=== PATIENT | female | born 1950 | race Caucasian/White ===

== ENCOUNTER 2018-01-10 14:26 | Inpatient (IN) | payer MEDICARE ==
[2018-01-10] MEDS: morphine 2 MG INJ IV ×2 (15:12→15:45)
[2018-01-10] MEDS: ONDANSETRON 4 MG INJ IV ×2 (15:12→19:21)
[2018-01-10] MEDS: HYDROmorphONE 0.5 MG/0.5 ML SYG IV ×2 (16:53→18:52)
[2018-01-10 17:09] LABS: ADD MAN DIFF? NO
[2018-01-10 17:14] LABS: WHITE BLOOD COUNT 12.1 10^3/ul (4.8-10.8)
[2018-01-10 17:14] LABS: BASOPHILS % 0.3 % (0.0-2.0); EOSINOPHILS % 0.1 % (0.0-7.0); HEMOGLOBIN 11.9 g/dl (12.0-16.0); LYMPHOCYTES # 0.7 10^3/ul (0.8-2.9); LYMPHOCYTES % 5.8 % (15.0-51.0); MEAN CORPUSCULAR HEMOGLOBIN 29.5 pg (29.0-33.0); MEAN CORPUSCULAR HGB CONC 33.1 g/dl (32.0-37.0); MEAN CORPUSCULAR VOLUME 89.1 fl (82.0-101.0); MEAN PLATELET VOLUME 8.1 fl (7.4-10.4); MONOCYTE # 0.4 10^3/ul (0.3-0.9); MONOCYTES % 2.9 % (0.0-11.0); NEUTROPHIL # 10.9 10^3/ul (1.6-7.5); NEUTROPHILS % 90.4 % (39.0-77.0); PLATELET COUNT 241 10^3/UL (140-415); RED BLOOD COUNT 4.04 10^6/ul (4.20-5.40); RED CELL DISTRIBUTION WIDTH 13.4 % (11.5-14.5)
[2018-01-10 17:33] LABS: ANION GAP 8 (5-13); BLOOD UREA NITROGEN 18 mg/dl (7-20); CALCIUM 8.3 mg/dl (8.4-10.2); CARBON DIOXIDE 24 mmol/L (21-31); CHLORIDE 104 mmol/L (97-110); CREATININE 0.68 mg/dl (0.44-1.00); Estimated GFR > 60 mL/min (>60); GLUCOSE 102 mg/dl (70-220); POTASSIUM 3.6 mmol/L (3.5-5.1); SODIUM 136 mmol/L (135-144)
[2018-01-10 18:09] LABS: INR 0.98; PROTIME 13.1 Sec (11.9-14.9)
[2018-01-10 18:10] LABS: PARTIAL THROMBOPLASTIN TIME 26.9 Sec (23.0-35.0)
[2018-01-10] MEDS: PANTOPRAZOLE 40 MG INJ IV (18:47)
[2018-01-10] MEDS ORDERED: ALBUTEROL/IPRATROPIUM (NEB) 3 ML AMP HHN (19:00)
[2018-01-10] MEDS ORDERED: NA PHOSPHATE/BIPHOS 133 ML ENEMA PR (19:00)
[2018-01-10] MEDS ORDERED: hydrALAzine 20 MG INJ IV (19:00)
[2018-01-10] MEDS ORDERED: LORAZEPAM 2 MG INJ IV (19:00)
[2018-01-10] MEDS ORDERED: DOCUSATE SODIUM 100 MG CAP PO (19:00)
[2018-01-10] MEDS ORDERED: NACL 0.9% 3 ML SYG IV (19:00)
[2018-01-10] MEDS ORDERED: MAGNESIUM HYDROXIDE 30ML CUP PO (19:00)
[2018-01-10] MEDS ORDERED: NITROGLYCERIN (SL) 0.4 MG TAB SL (19:00)
[2018-01-10] MEDS: FAMOTIDINE 20 MG TAB PO (20:09)
[2018-01-10 20:32] LABS: TROPONIN-I < 0.012 ng/ml (0.000-0.120)
[2018-01-10] MEDS: HEPARIN SODIUM 5,000 UNIT/ML VIAL SC (20:47)
[2018-01-10 21:02] LABS: FREE T4 (FREE THYROXINE) 0.98 ng/dl (0.78-2.44)
[2018-01-10] MEDS: ACETAMINOPHEN 325 MG TAB PO (21:36)
[2018-01-10] MEDS: HYDROCODONE/APAP (5/325) TAB PO (21:36)
[2018-01-10] MEDS: SOD CHLORIDE 0.45% 1,000 ML IV (23:55)
[2018-01-11] MEDS: morphine 2 MG INJ IV ×3 (00:56→08:54)
[2018-01-11] MEDS: HYDROmorphONE 0.5 MG/0.5 ML SYG IV ×4 (02:25→15:37)
[2018-01-11] MEDS: ONDANSETRON 4 MG INJ IV ×2 (04:00→10:25)
[2018-01-11 05:04] LABS: ADD MAN DIFF? NO
[2018-01-11 05:05] LABS: BASOPHILS % 0.4 % (0.0-2.0); EOSINOPHILS # 0.1 10^3/ul (0.0-0.5); EOSINOPHILS % 1.6 % (0.0-7.0); HEMATOCRIT 31.2 % (37.0-47.0); HEMOGLOBIN 10.3 g/dl (12.0-16.0); LYMPHOCYTES # 0.9 10^3/ul (0.8-2.9); LYMPHOCYTES % 13.1 % (15.0-51.0); MEAN CORPUSCULAR HEMOGLOBIN 29.5 pg (29.0-33.0); MEAN CORPUSCULAR VOLUME 89.4 fl (82.0-101.0); MEAN PLATELET VOLUME 8.4 fl (7.4-10.4); MONOCYTE # 0.3 10^3/ul (0.3-0.9); MONOCYTES % 3.6 % (0.0-11.0); NEUTROPHIL # 5.7 10^3/ul (1.6-7.5); NEUTROPHILS % 80.7 % (39.0-77.0); PLATELET COUNT 211 10^3/UL (140-415); RED BLOOD COUNT 3.49 10^6/ul (4.20-5.40); RED CELL DISTRIBUTION WIDTH 13.7 % (11.5-14.5)
[2018-01-11 05:22] LABS: ANION GAP 11 (5-13); BLOOD UREA NITROGEN 12 mg/dl (7-20); CARBON DIOXIDE 23 mmol/L (21-31); CHLORIDE 100 mmol/L (97-110); CREATININE 0.49 mg/dl (0.44-1.00); Estimated GFR > 60 mL/min (>60); GLUCOSE 91 mg/dl (70-220); MAGNESIUM 1.9 mg/dl (1.7-2.5); PHOSPHORUS 3.3 mg/dl (2.5-4.9); POTASSIUM 3.4 mmol/L (3.5-5.1); SODIUM 134 mmol/L (135-144)
[2018-01-11 05:23] LABS: CHOL/HDL RATIO 2.6 RATIO; HDL CHOLESTEROL 54 mg/dl (33-92); LDL CHOLESTEROL,CALCULATED 79 mg/dl; TRIGLYCERIDES 51 mg/dl (0-149)
[2018-01-11 05:23] LABS: CHOLESTEROL 143 mg/dl (100-200)
[2018-01-11 05:24] LABS: HEMOGLOBIN A1C 5.1 % (0-5.9)
[2018-01-11] MEDS: PANTOPRAZOLE 40 MG INJ IV (05:59)
[2018-01-11 06:34] LABS: ADD UMIC YES; UR ASCORBIC ACID NEGATIVE (NEGATIVE); UR BILIRUBIN (Dip) NEGATIVE (NEGATIVE); UR BLOOD (Dip) NEGATIVE (NEGATIVE); UR CLARITY SLIGHTLY CLOUDY (CLEAR); UR COLOR YELLOW (YELLOW); UR GLUCOSE (Dip) NEGATIVE (NEGATIVE); UR KETONES (Dip) TRACE mg/dL (NEGATIVE); UR LEUKOCYTE ESTERASE (Dip) TRACE Leu/ul (NEGATIVE); UR NITRITE (Dip) NEGATIVE (NEGATIVE); UR RBC 1 /HPF (0-5); UR SPECIFIC GRAVITY (Dip) 1.014 (1.003-1.030); UR TOTAL PROTEIN (Dip) NEGATIVE (NEGATIVE); UR UROBILINOGEN (Dip) NEGATIVE (NEGATIVE); UR WBC 4 /HPF (0-5)
[2018-01-11] MEDS: SOD CHLORIDE 0.45% 1,000 ML IV ×3 (08:08→21:28)
[2018-01-11] MEDS: HEPARIN SODIUM 5,000 UNIT/ML VIAL SC ×3 (08:27→20:48)
[2018-01-11] MEDS ORDERED: HEPARIN 5,000 UNIT/0.5 ML VIAL ×2 (10:13→20:43)
[2018-01-11] MEDS: POTASSIUM CHLORIDE (SR) 20 MEQ TAB PO (10:40)
[2018-01-11] MEDS ORDERED: ONDANSETRON 4 MG INJ IV (12:00)
[2018-01-11] MEDS: CEFTRIAXONE 1 GM/50 ML (PMX) 50 ML IVPB (12:47)
[2018-01-11] MEDS: traMADol 50 MG TAB PO ×2 (12:48→22:59)
[2018-01-11] MEDS: ONDANSETRON INJ 8 MG in SOD CHLORIDE 0.9% 50 ML IV (16:53)
[2018-01-11] MEDS ORDERED: morphine LIQ (10 MG/5 ML) CUP PO (22:30)
[2018-01-12 05:03] LABS: ADD MAN DIFF? NO
[2018-01-12 05:05] LABS: BASOPHIL # 0.1 10^3/ul (0.0-0.1); BASOPHILS % 1.1 % (0.0-2.0); EOSINOPHILS # 0.3 10^3/ul (0.0-0.5); HEMATOCRIT 32.2 % (37.0-47.0); HEMOGLOBIN 10.4 g/dl (12.0-16.0); LYMPHOCYTES # 1.2 10^3/ul (0.8-2.9); LYMPHOCYTES % 15.8 % (15.0-51.0); MEAN CORPUSCULAR HEMOGLOBIN 29.5 pg (29.0-33.0); MEAN CORPUSCULAR HGB CONC 32.3 g/dl (32.0-37.0); MEAN CORPUSCULAR VOLUME 91.2 fl (82.0-101.0); MEAN PLATELET VOLUME 8.4 fl (7.4-10.4); MONOCYTE # 0.5 10^3/ul (0.3-0.9); MONOCYTES % 6.7 % (0.0-11.0); NEUTROPHIL # 5.4 10^3/ul (1.6-7.5); PLATELET COUNT 206 10^3/UL (140-415); RED BLOOD COUNT 3.53 10^6/ul (4.20-5.40); RED CELL DISTRIBUTION WIDTH 13.7 % (11.5-14.5)
[2018-01-12 05:05] LABS: WHITE BLOOD COUNT 7.5 10^3/ul (4.8-10.8)
[2018-01-12 05:35] LABS: ANION GAP 5 (5-13); BLOOD UREA NITROGEN 9 mg/dl (7-20); CARBON DIOXIDE 25 mmol/L (21-31); CHLORIDE 103 mmol/L (97-110); CREATININE 0.48 mg/dl (0.44-1.00); Estimated GFR > 60 mL/min (>60); GLUCOSE 97 mg/dl (70-220); SODIUM 133 mmol/L (135-144)
[2018-01-12] MEDS: PANTOPRAZOLE 40 MG INJ IV (05:59)
[2018-01-12] MEDS: traMADol 50 MG TAB PO ×3 (07:30→20:39)
[2018-01-12] MEDS ORDERED: HEPARIN 5,000 UNIT/0.5 ML VIAL ×2 (08:23→20:10)
[2018-01-12] MEDS: HEPARIN SODIUM 5,000 UNIT/ML VIAL SC ×2 (09:42→20:42)
[2018-01-12] MEDS: ACETAMINOPHEN 325 MG TAB PO ×2 (11:39→17:09)
[2018-01-12] MEDS: CEFTRIAXONE 1 GM/50 ML (PMX) 50 ML IVPB (12:35)
[2018-01-13] MEDS: traMADol 50 MG TAB PO ×3 (04:32→20:23)
[2018-01-13 05:14] LABS: ADD MAN DIFF? NO
[2018-01-13 05:21] LABS: BASOPHILS % 0.6 % (0.0-2.0); EOSINOPHILS % 3.1 % (0.0-7.0); HEMATOCRIT 31.4 % (37.0-47.0); HEMOGLOBIN 10.2 g/dl (12.0-16.0); LYMPHOCYTES # 0.9 10^3/ul (0.8-2.9); LYMPHOCYTES % 13.4 % (15.0-51.0); MEAN CORPUSCULAR HEMOGLOBIN 29.4 pg (29.0-33.0); MEAN CORPUSCULAR HGB CONC 32.5 g/dl (32.0-37.0); MEAN CORPUSCULAR VOLUME 90.5 fl (82.0-101.0); MEAN PLATELET VOLUME 8.5 fl (7.4-10.4); MONOCYTES % 7.9 % (0.0-11.0); NEUTROPHIL # 4.7 10^3/ul (1.6-7.5); NEUTROPHILS % 74.4 % (39.0-77.0); PLATELET COUNT 197 10^3/UL (140-415); RED BLOOD COUNT 3.47 10^6/ul (4.20-5.40); RED CELL DISTRIBUTION WIDTH 13.7 % (11.5-14.5)
[2018-01-13 05:21] LABS: WHITE BLOOD COUNT 6.4 10^3/ul (4.8-10.8)
[2018-01-13 05:22] LABS: EOSINOPHILS # 0.2 10^3/ul (0.0-0.5); MONOCYTE # 0.5 10^3/ul (0.3-0.9)
[2018-01-13] MEDS: PANTOPRAZOLE 40 MG INJ IV (05:23)
[2018-01-13 05:49] LABS: ANION GAP 9 (5-13); BLOOD UREA NITROGEN 9 mg/dl (7-20); CALCIUM 8.3 mg/dl (8.4-10.2); CARBON DIOXIDE 27 mmol/L (21-31); CHLORIDE 99 mmol/L (97-110); CREATININE 0.48 mg/dl (0.44-1.00); Estimated GFR > 60 mL/min (>60); GLUCOSE 89 mg/dl (70-220); POTASSIUM 3.9 mmol/L (3.5-5.1); SODIUM 135 mmol/L (135-144)
[2018-01-13] MEDS ORDERED: HEPARIN 5,000 UNIT/0.5 ML VIAL ×2 (08:12→20:21)
[2018-01-13] MEDS: HEPARIN SODIUM 5,000 UNIT/ML VIAL SC ×2 (09:15→20:32)
[2018-01-13] MEDS: CEFTRIAXONE 1 GM/50 ML (PMX) 50 ML IVPB (12:12)
[2018-01-13] MEDS: ACETAMINOPHEN 325 MG TAB PO ×2 (12:13→18:10)
[2018-01-13] MEDS: CALCIUM CARBONATE 500 MG CHEW TAB PO (13:20)
[2018-01-14] MEDS: traMADol 50 MG TAB PO ×4 (02:55→20:15)
[2018-01-14 05:20] LABS: ADD MAN DIFF? NO
[2018-01-14 05:21] LABS: BASOPHIL # 0.1 10^3/ul (0.0-0.1); BASOPHILS % 0.7 % (0.0-2.0); EOSINOPHILS # 0.2 10^3/ul (0.0-0.5); EOSINOPHILS % 3.3 % (0.0-7.0); HEMATOCRIT 30.6 % (37.0-47.0); HEMOGLOBIN 9.9 g/dl (12.0-16.0); LYMPHOCYTES % 14.1 % (15.0-51.0); MEAN CORPUSCULAR HEMOGLOBIN 29.2 pg (29.0-33.0); MEAN CORPUSCULAR HGB CONC 32.4 g/dl (32.0-37.0); MEAN CORPUSCULAR VOLUME 90.3 fl (82.0-101.0); MEAN PLATELET VOLUME 8.7 fl (7.4-10.4); MONOCYTE # 0.6 10^3/ul (0.3-0.9); MONOCYTES % 8.1 % (0.0-11.0); NEUTROPHIL # 5.3 10^3/ul (1.6-7.5); NEUTROPHILS % 72.7 % (39.0-77.0); PLATELET COUNT 225 10^3/UL (140-415); RED BLOOD COUNT 3.39 10^6/ul (4.20-5.40); RED CELL DISTRIBUTION WIDTH 13.9 % (11.5-14.5)
[2018-01-14 05:21] LABS: WHITE BLOOD COUNT 7.3 10^3/ul (4.8-10.8)
[2018-01-14 05:47] LABS: ANION GAP 6 (5-13); BLOOD UREA NITROGEN 10 mg/dl (7-20); CALCIUM 8.2 mg/dl (8.4-10.2); CARBON DIOXIDE 29 mmol/L (21-31); CHLORIDE 100 mmol/L (97-110); CREATININE 0.43 mg/dl (0.44-1.00); Estimated GFR > 60 mL/min (>60); GLUCOSE 94 mg/dl (70-220); POTASSIUM 3.9 mmol/L (3.5-5.1); SODIUM 135 mmol/L (135-144)
[2018-01-14] MEDS: PANTOPRAZOLE 40 MG INJ IV (06:31)
[2018-01-14] MEDS ORDERED: HEPARIN 5,000 UNIT/0.5 ML VIAL ×2 (08:41→20:02)
[2018-01-14] MEDS: HEPARIN SODIUM 5,000 UNIT/ML VIAL SC ×2 (08:46→20:08)
[2018-01-14] MEDS: ACETAMINOPHEN 325 MG TAB PO (08:54)
== END 2018-01-14 20:48 | DRG 563 ==
LOC: E/R 14:26 → MS1 18:00
DX: S42.211A Unspecified displaced fracture of surgical neck of right humerus, initial encounter for closed fracture (principal); S82.141A Displaced bicondylar fracture of right tibia, initial encounter for closed fracture; E03.9 Hypothyroidism, unspecified; G56.00 Carpal tunnel syndrome, unspecified upper limb; Z85.3 Personal history of malignant neoplasm of breast; Z90.13 Acquired absence of bilateral breasts and nipples; G62.9 Polyneuropathy, unspecified; W19.XXXA Unspecified fall, initial encounter; Y93.K1 Activity, walking an animal; M19.011 Primary osteoarthritis, right shoulder
CPT/HCPCS: 71045; 73030-RT; 73060-RT; 73200; 73562; 73590; 73700; 80048; 80061; 81001; 83036; 83735; 84100; 84439; 84443; 84484; 85025; 85610; 85730; 87086; 93005; 96374; 96375; 96376; 97161; 97530; 99285-25

== ENCOUNTER 2018-01-14 21:02 | Inpatient (IN) | payer MEDICARE ==
[2018-01-14] MEDS ORDERED: HYDROmorphONE 0.5 MG/0.5 ML SYG IV (23:18)
[2018-01-14] MEDS ORDERED: NITROGLYCERIN (SL) 0.4 MG TAB SL (23:18)
[2018-01-14] MEDS ORDERED: hydrALAzine 20 MG INJ IV (23:18)
[2018-01-14] MEDS ORDERED: morphine LIQ (10 MG/5 ML) CUP PO (23:18)
[2018-01-14] MEDS ORDERED: ALBUTEROL/IPRATROPIUM (NEB) 3 ML AMP HHN (23:18)
[2018-01-14] MEDS ORDERED: NA PHOSPHATE/BIPHOS 133 ML ENEMA PR (23:18)
[2018-01-14] MEDS ORDERED: LORAZEPAM 0.5 MG TAB PO (23:30)
[2018-01-15 02:35] LABS: ADD UMIC NO; UR ASCORBIC ACID NEGATIVE (NEGATIVE); UR BILIRUBIN (Dip) NEGATIVE (NEGATIVE); UR BLOOD (Dip) NEGATIVE (NEGATIVE); UR CLARITY CLEAR (CLEAR); UR COLOR YELLOW (YELLOW); UR GLUCOSE (Dip) NEGATIVE (NEGATIVE); UR KETONES (Dip) NEGATIVE (NEGATIVE); UR LEUKOCYTE ESTERASE (Dip) NEGATIVE Leu/ul (NEGATIVE); UR NITRITE (Dip) NEGATIVE (NEGATIVE); UR SPECIFIC GRAVITY (Dip) 1.004 (1.003-1.030); UR TOTAL PROTEIN (Dip) NEGATIVE (NEGATIVE); UR UROBILINOGEN (Dip) NEGATIVE (NEGATIVE)
[2018-01-15] MEDS: traMADol 50 MG TAB PO ×2 (03:06→21:05)
[2018-01-15] MEDS: PANTOPRAZOLE (EC) 40 MG TAB PO (06:37)
[2018-01-15] MEDS: ACETAMINOPHEN 325 MG TAB PO (06:40)
[2018-01-15 07:06] LABS: ADD MAN DIFF? NO
[2018-01-15 07:14] LABS: WHITE BLOOD COUNT 6.3 10^3/ul (4.8-10.8)
[2018-01-15 07:14] LABS: BASOPHIL # 0.1 10^3/ul (0.0-0.1); BASOPHILS % 0.8 % (0.0-2.0); EOSINOPHILS # 0.3 10^3/ul (0.0-0.5); EOSINOPHILS % 4.3 % (0.0-7.0); HEMATOCRIT 30.9 % (37.0-47.0); HEMOGLOBIN 10.1 g/dl (12.0-16.0); LYMPHOCYTES # 1.2 10^3/ul (0.8-2.9); LYMPHOCYTES % 19.3 % (15.0-51.0); MEAN CORPUSCULAR HEMOGLOBIN 29.5 pg (29.0-33.0); MEAN CORPUSCULAR HGB CONC 32.7 g/dl (32.0-37.0); MEAN CORPUSCULAR VOLUME 90.4 fl (82.0-101.0); MEAN PLATELET VOLUME 8.5 fl (7.4-10.4); MONOCYTE # 0.6 10^3/ul (0.3-0.9); MONOCYTES % 9.5 % (0.0-11.0); NEUTROPHIL # 4.1 10^3/ul (1.6-7.5); NEUTROPHILS % 64.4 % (39.0-77.0); PLATELET COUNT 234 10^3/UL (140-415); RED BLOOD COUNT 3.42 10^6/ul (4.20-5.40); RED CELL DISTRIBUTION WIDTH 14.1 % (11.5-14.5)
[2018-01-15 07:34] LABS: ALANINE AMINOTRANSFERASE 46 IU/L (13-69); ALBUMIN 3.4 g/dl (3.3-4.9); ALBUMIN/GLOBULIN RATIO 1.13; ALKALINE PHOSPHATASE 95 IU/L (42-121); ANION GAP 7 (5-13); ASPARTATE AMINO TRANSFERASE 74 IU/L (15-46); BILIRUBIN,INDIRECT 0.4 mg/dl (0-1.1); BILIRUBIN,TOTAL 0.4 mg/dl (0.2-1.3); BLOOD UREA NITROGEN 7 mg/dl (7-20); CALCIUM 8.4 mg/dl (8.4-10.2); CARBON DIOXIDE 29 mmol/L (21-31); CHLORIDE 99 mmol/L (97-110); CREATININE 0.45 mg/dl (0.44-1.00); Estimated GFR > 60 mL/min (>60); GLUCOSE 85 mg/dl (70-220); POTASSIUM 4.1 mmol/L (3.5-5.1); SODIUM 135 mmol/L (135-144); TOTAL PROTEIN 6.4 g/dl (6.1-8.1)
[2018-01-15] MEDS ORDERED: HEPARIN 5,000 UNIT/0.5 ML VIAL ×2 (09:21→21:00)
[2018-01-15] MEDS: HEPARIN SODIUM 5,000 UNIT/ML VIAL SC ×2 (09:23→21:09)
[2018-01-16] MEDS: PANTOPRAZOLE (EC) 40 MG TAB PO (05:47)
[2018-01-16] MEDS: traMADol 50 MG TAB PO ×2 (05:47→20:37)
[2018-01-16] MEDS: LEVOTHYROXINE 112 MCG TAB PO (06:50)
[2018-01-16] MEDS ORDERED: HEPARIN 5,000 UNIT/0.5 ML VIAL ×2 (09:50→19:55)
[2018-01-16] MEDS: ACETAMINOPHEN 325 MG TAB PO (11:02)
[2018-01-16] MEDS: DOCUSATE SODIUM 100 MG CAP PO (11:02)
[2018-01-16] MEDS: HEPARIN SODIUM 5,000 UNIT/ML VIAL SC ×2 (11:04→20:39)
[2018-01-16] MEDS: MAGNESIUM HYDROXIDE 30ML CUP PO (14:24)
[2018-01-17] MEDS: LEVOTHYROXINE 112 MCG TAB PO (06:23)
[2018-01-17] MEDS: PANTOPRAZOLE (EC) 40 MG TAB PO (06:23)
[2018-01-17] MEDS ORDERED: HEPARIN 5,000 UNIT/0.5 ML VIAL ×2 (08:45→21:30)
[2018-01-17] MEDS: ACETAMINOPHEN 325 MG TAB PO (08:53)
[2018-01-17] MEDS: HEPARIN SODIUM 5,000 UNIT/ML VIAL SC ×2 (09:00→21:00)
[2018-01-17] MEDS: traMADol 50 MG TAB PO (20:46)
[2018-01-18] MEDS: LEVOTHYROXINE 112 MCG TAB PO (06:51)
[2018-01-18] MEDS: PANTOPRAZOLE (EC) 40 MG TAB PO (06:51)
[2018-01-18] MEDS ORDERED: HEPARIN 5,000 UNIT/0.5 ML VIAL (08:17)
[2018-01-18] MEDS: HEPARIN SODIUM 5,000 UNIT/ML VIAL SC (08:28)
[2018-01-18] MEDS: traMADol 50 MG TAB PO (10:59)
== END 2018-01-18 11:30 | disposition home health service (06) | DRG 561 ==
LOC: VRC 21:02
PROC: F07Z5ZZ Bed Mobility Treatment (ICD-10-PCS; principal; 2018-01-15)
PROC: F07Z8ZZ Transfer Training Treatment (ICD-10-PCS; 2018-01-15)
PROC: F07Z4ZZ Wheelchair Mobility Treatment (ICD-10-PCS; 2018-01-15)
PROC: F08Z2ZZ Grooming/Personal Hygiene Treatment (ICD-10-PCS; 2018-01-15)
PROC: F08Z1ZZ Dressing Techniques Treatment (ICD-10-PCS; 2018-01-15)
PROC: F08Z0ZZ Bathing/Showering Techniques Treatment (ICD-10-PCS; 2018-01-15)
DX: S82.111D Displaced fracture of right tibial spine, subsequent encounter for closed fracture with routine healing (principal); S42.201D Unspecified fracture of upper end of right humerus, subsequent encounter for fracture with routine healing; W18.39XD Other fall on same level, subsequent encounter; E03.9 Hypothyroidism, unspecified; G62.9 Polyneuropathy, unspecified; D64.9 Anemia, unspecified; G56.00 Carpal tunnel syndrome, unspecified upper limb; Z85.3 Personal history of malignant neoplasm of breast
CPT/HCPCS: 80053; 81003; 85025; 87081; 87086; 97110; 97150; 97162; 97166; 97530; 97535; 97542